=== PATIENT | male | born 1965 | race Caucasian/White ===

== ENCOUNTER 2020-05-15 10:59 | Inpatient (IN) | payer MEDICAID, OTHER ==
[~2020-05-15] VITALS: Ht 165.1 cm; Wt 75.0 kg
[2020-05-15] MEDS ORDERED: ALBU8HFA IH (11:35)
[2020-05-15] MEDS ORDERED: ACETAMINOPHEN 325 MG TABLET PO PRN (11:45)
[2020-05-15 12:07] LABS: BASOPHILS % (AUTO) 0.8 % (0.0-2.0); EOSINOPHILS % (AUTO) 0.4 % (1.0-6.0); HEMATOCRIT 42.4 % (41-53); HEMOGLOBIN 14.9 g/dL (13.5-17.5); LYMPHOCYTES # (AUTO) 1.9 K/uL (1.0-4.8); MEAN CORPUSCULAR HEMOGLOBIN 34.5 pg (26.0-34.0); MEAN CORPUSCULAR HGB CONC 35.2 G/dL (31.0-37.0); MEAN CORPUSCULAR VOLUME 98 fL (80-100); MONOCYTES # (AUTO) 0.4 K/uL (0.1-1.0); MONOCYTES % (AUTO) 6.2 % (2.0-9.0); NEUTROPHILS # (AUTO) 4.1 K/uL (1.8-7.7); NEUTROPHILS % (AUTO) 63.6 % (40.0-70.0); PLATELET COUNT (AUTO) 198 K/uL (150-450); RED BLOOD CELL COUNT(AUTO) 4.32 MIL/uL (4.50-5.90); RED CELL DISTRIBUTION WIDTH 12.7 % (11.5-14.5)
[2020-05-15 12:12] LABS: ANION GAP 7 mmol/L (8-16); CALCIUM, TOTAL 8.9 mg/dL (8.8-10.5); CARBON DIOXIDE 28 mmol/L (22-29); CHLORIDE 103 mmol/L (98-107); CREATININE 0.76 mg/dL (0.60-1.30); GLOMERULAR FILTR. RATE CALC > 60 mL/min (>60); GLUCOSE,RANDOM 95 mg/dL (70-110); POTASSIUM 3.7 mmol/L (3.5-5.1); SODIUM SERUM 138 mmol/L (136-145); UREA NITROGEN, BLOOD 12 mg/dL (7-18)
[2020-05-15 12:13] LABS: COVID AG,FIA SOURCE NASOPHARYNGEAL
[2020-05-15 12:18] LABS: ALANINE AMINOTRANSFERASE 37 U/L (12-78); ALBUMIN 3.8 g/dL (3.4-5.0); ALKALINE PHOSPHATASE 56 U/L (46-116); ASPARTATE AMINOTRANSFERASE 26 U/L (15-37); BILIRUBIN,TOTAL 0.6 mg/dL (0.1-1.0); CHOL/HDL RATIO 3.2 (4.2-7.3); CHOLESTEROL 158 mg/dL (131-200); HDL CHOLESTEROL 49 mg/dL (40-60); LDL CHOL (CALC.) 96 mg/dL (0-130); TRIGLYCERIDES 65 mg/dL (15-150)
[2020-05-15 13:26] VITALS: BP 105/66
[2020-05-15] MEDS ORDERED: BISACODYL 10 MG RECTAL RECTAL SUPPOSITORY PR PRN (13:45)
[2020-05-15] MEDS ORDERED: 0.9% SODIUM CHLORIDE 10 ML SYRINGE IVP PRN (13:45)
[2020-05-15] MEDS ORDERED: ONDANSETRON HCL 4 MG/2 ML VIAL IVP PRN (13:45)
[2020-05-15] MEDS: ACETAMINOPHEN 325 MG TABLET PO PRN (19:34)
[2020-05-15 19:40] VITALS: BP 110/64
[2020-05-15] MEDS: IPRATROPIUM BROMIDE 0.5 MG/2.5 ML NEB SOLUTION NEB PRN (20:10)
[2020-05-15] MEDS: ALBUTEROL SULFATE 2.5 MG/0.5 ML NEB SOLUTION NEB PRN (20:10)
[2020-05-16 04:09] VITALS: BP 103/60
[2020-05-16 07:21] LABS: BASOPHILS % (AUTO) 0.8 % (0.0-2.0); EOSINOPHILS % (AUTO) 0.9 % (1.0-6.0); HEMATOCRIT 42.5 % (41-53); HEMOGLOBIN 15.1 g/dL (13.5-17.5); LYMPHOCYTES # (AUTO) 1.8 K/uL (1.0-4.8); LYMPHOCYTES % (AUTO) 36.6 % (22.0-44.0); MEAN CORPUSCULAR HEMOGLOBIN 35.1 pg (26.0-34.0); MEAN CORPUSCULAR HGB CONC 35.6 G/dL (31.0-37.0); MEAN CORPUSCULAR VOLUME 99 fL (80-100); MONOCYTES # (AUTO) 0.4 K/uL (0.1-1.0); MONOCYTES % (AUTO) 7.8 % (2.0-9.0); NEUTROPHILS # (AUTO) 2.7 K/uL (1.8-7.7); NEUTROPHILS % (AUTO) 53.9 % (40.0-70.0); PLATELET COUNT (AUTO) 174 K/uL (150-450); RED BLOOD CELL COUNT(AUTO) 4.31 MIL/uL (4.50-5.90); RED CELL DISTRIBUTION WIDTH 12.8 % (11.5-14.5)
[2020-05-16 07:53] LABS: ANION GAP 9 mmol/L (8-16); CALCIUM, TOTAL 8.9 mg/dL (8.8-10.5); CARBON DIOXIDE 27 mmol/L (22-29); CHLORIDE 103 mmol/L (98-107); CREATININE 0.71 mg/dL (0.60-1.30); GLOMERULAR FILTR. RATE CALC > 60 mL/min (>60); GLUCOSE,RANDOM 82 mg/dL (70-110); POTASSIUM 3.4 mmol/L (3.5-5.1); SODIUM SERUM 139 mmol/L (136-145); UREA NITROGEN, BLOOD 11 mg/dL (7-18)
[2020-05-16 08:32] VITALS: BP 102/70
[2020-05-16] MEDS: PANTOPRAZOLE SODIUM 40 MG DR TABLET PO SCH (08:43)
[2020-05-16] MEDS ORDERED: POTASSIUM CHLORIDE 10% 40 MEQ/30 ML LIQUID UDCUP PO ONE (14:15)
[2020-05-16 16:32] VITALS: BP 105/64
[2020-05-16 19:12] VITALS: BP 95/58
[2020-05-16] MEDS: ACETAMINOPHEN 325 MG TABLET PO PRN (19:32)
[2020-05-17 05:27] VITALS: BP 111/73
[2020-05-17 06:27] LABS: ANION GAP 5 mmol/L (8-16); CALCIUM, TOTAL 8.8 mg/dL (8.8-10.5); CARBON DIOXIDE 29 mmol/L (22-29); CHLORIDE 101 mmol/L (98-107); CREATININE 0.98 mg/dL (0.60-1.30); GLOMERULAR FILTR. RATE CALC > 60 mL/min (>60); GLUCOSE,RANDOM 102 mg/dL (70-110); POTASSIUM 3.5 mmol/L (3.5-5.1); SODIUM SERUM 135 mmol/L (136-145); UREA NITROGEN, BLOOD 15 mg/dL (7-18)
[2020-05-17 07:41] VITALS: BP 107/68
[2020-05-17] MEDS: DARUNAVIR ETHANOLATE 800 MG TABLET PO SCH (08:20)
[2020-05-17] MEDS: PANTOPRAZOLE SODIUM 40 MG DR TABLET PO SCH (08:21)
[2020-05-17] MEDS: ELVITEG/COB/EMTRI/TENOF ALAFEN 150-150-200-10MG TABLET PO SCH (08:21)
[2020-05-17] MEDS: SERTRALINE HCL 50 MG TABLET PO SCH (12:01)
[2020-05-17] MEDS: ACETAMINOPHEN 325 MG TABLET PO PRN (14:50)
[2020-05-17 16:04] VITALS: BP 131/86
[2020-05-17 19:35] VITALS: BP 104/58
[2020-05-18 05:38] VITALS: BP 111/66
[2020-05-18] MEDS: ALBUTEROL SULFATE 2.5 MG/0.5 ML NEB SOLUTION NEB PRN (07:06)
[2020-05-18] MEDS: IPRATROPIUM BROMIDE 0.5 MG/2.5 ML NEB SOLUTION NEB PRN (07:06)
[2020-05-18 07:34] VITALS: BP 104/58
[2020-05-18] MEDS: DARUNAVIR ETHANOLATE 800 MG TABLET PO SCH (08:25)
[2020-05-18] MEDS: ELVITEG/COB/EMTRI/TENOF ALAFEN 150-150-200-10MG TABLET PO SCH (08:44)
[2020-05-18] MEDS: PANTOPRAZOLE SODIUM 40 MG DR TABLET PO SCH (09:06)
[2020-05-18] MEDS: SERTRALINE HCL 50 MG TABLET PO SCH (09:06)
[2020-05-18] MEDS: ACETAMINOPHEN 325 MG TABLET PO PRN (10:47)
[2020-05-18 10:53] VITALS: BP 118/76
[2020-05-18 15:18] VITALS: BP 122/72
[2020-05-18 19:11] VITALS: BP 124/76
[2020-05-18] MEDS: DOCUSATE SODIUM 100 MG CAPSULE PO PRN (20:24)
[2020-05-19 03:16] VITALS: BP 116/75
[2020-05-19] MEDS: ACETAMINOPHEN 325 MG TABLET PO PRN ×3 (03:18→17:14)
[2020-05-19 07:30] VITALS: BP 123/67
[2020-05-19] MEDS: DARUNAVIR ETHANOLATE 800 MG TABLET PO SCH (08:39)
[2020-05-19] MEDS: ELVITEG/COB/EMTRI/TENOF ALAFEN 150-150-200-10MG TABLET PO SCH (08:39)
[2020-05-19] MEDS: PANTOPRAZOLE SODIUM 40 MG DR TABLET PO SCH (08:39)
[2020-05-19] MEDS: SERTRALINE HCL 50 MG TABLET PO SCH (08:39)
[2020-05-19] MEDS: DOCUSATE SODIUM 100 MG CAPSULE PO PRN ×2 (08:39→20:11)
[2020-05-19 15:01] VITALS: BP 118/68
[2020-05-19 19:09] VITALS: BP 109/66
[2020-05-20 05:55] VITALS: BP 118/70
[2020-05-20 07:22] VITALS: BP 114/79
[2020-05-20] MEDS: DARUNAVIR ETHANOLATE 800 MG TABLET PO SCH (08:19)
[2020-05-20] MEDS: PANTOPRAZOLE SODIUM 40 MG DR TABLET PO SCH (08:19)
[2020-05-20] MEDS: SERTRALINE HCL 50 MG TABLET PO SCH (08:19)
[2020-05-20] MEDS: ELVITEG/COB/EMTRI/TENOF ALAFEN 150-150-200-10MG TABLET PO SCH (08:19)
[2020-05-20 15:04] VITALS: BP 122/68
[2020-05-20 19:03] VITALS: BP 116/64
[2020-05-21] MEDS: ACETAMINOPHEN 325 MG TABLET PO PRN ×3 (01:01→19:45)
[2020-05-21 01:03] VITALS: BP 120/61
[2020-05-21] MEDS: IPRATROPIUM BROMIDE 0.5 MG/2.5 ML NEB SOLUTION NEB PRN (01:28)
[2020-05-21] MEDS: ALBUTEROL SULFATE 2.5 MG/0.5 ML NEB SOLUTION NEB PRN (01:28)
[2020-05-21 08:21] VITALS: BP 119/76
[2020-05-21] MEDS: DARUNAVIR ETHANOLATE 800 MG TABLET PO SCH (08:36)
[2020-05-21] MEDS: ELVITEG/COB/EMTRI/TENOF ALAFEN 150-150-200-10MG TABLET PO SCH (08:36)
[2020-05-21] MEDS: PANTOPRAZOLE SODIUM 40 MG DR TABLET PO SCH (08:36)
[2020-05-21] MEDS: SERTRALINE HCL 50 MG TABLET PO SCH (08:36)
[2020-05-21 19:36] VITALS: BP 103/63
[2020-05-22 05:16] VITALS: BP 116/79
[2020-05-22] MEDS: ACETAMINOPHEN 325 MG TABLET PO PRN ×4 (05:20→20:18)
[2020-05-22 07:28] VITALS: BP 111/66
[2020-05-22] MEDS: PANTOPRAZOLE SODIUM 40 MG DR TABLET PO SCH (08:22)
[2020-05-22] MEDS: DARUNAVIR ETHANOLATE 800 MG TABLET PO SCH (08:22)
[2020-05-22] MEDS: SERTRALINE HCL 50 MG TABLET PO SCH (08:23)
[2020-05-22] MEDS: ELVITEG/COB/EMTRI/TENOF ALAFEN 150-150-200-10MG TABLET PO SCH (08:23)
[2020-05-22] MEDS: ALBUTEROL SULFATE 2.5 MG/0.5 ML NEB SOLUTION NEB PRN (13:28)
[2020-05-22] MEDS: IPRATROPIUM BROMIDE 0.5 MG/2.5 ML NEB SOLUTION NEB PRN (13:28)
[2020-05-22 15:58] VITALS: BP 118/64
[2020-05-22 19:40] VITALS: BP 107/66
[2020-05-22] MEDS: DOCUSATE SODIUM 100 MG CAPSULE PO PRN (20:24)
[2020-05-23 04:18] VITALS: BP 107/65
[2020-05-23] MEDS: ACETAMINOPHEN 325 MG TABLET PO PRN ×2 (04:26→10:58)
[2020-05-23] MEDS: PANTOPRAZOLE SODIUM 40 MG DR TABLET PO SCH (08:16)
[2020-05-23] MEDS: SERTRALINE HCL 50 MG TABLET PO SCH (08:16)
[2020-05-23] MEDS: ELVITEG/COB/EMTRI/TENOF ALAFEN 150-150-200-10MG TABLET PO SCH (08:16)
[2020-05-23] MEDS: DARUNAVIR ETHANOLATE 800 MG TABLET PO SCH (08:17)
[2020-05-23 08:41] VITALS: BP 120/68
== END 2020-05-23 12:45 | DRG 885 ==
LOC: EMS 10:59 → 6S 12:29
PROVIDERS: ADMIT Internal Medicine; ATTEND Internal Medicine
DX: F33.2 Major depressive disorder, recurrent severe without psychotic features (principal); T71.162A Asphyxiation due to hanging, intentional self-harm, initial encounter; R45.851 Suicidal ideations; B20 Human immunodeficiency virus [HIV] disease; F64.0 Transsexualism; F40.240 Claustrophobia; F41.9 Anxiety disorder, unspecified; J45.909 Unspecified asthma, uncomplicated; Z20.828 Contact with and (suspected) exposure to other viral communicable diseases; I10 Essential (primary) hypertension; Z79.899 Other long term (current) drug therapy
CPT/HCPCS: 87426; 94640; G0480; J2405